=== PATIENT | female | born 1935 | race Caucasian/White ===

== ENCOUNTER 2017-01-02 18:40 | Emergency (ER) | payer OTHER ==
[2017-01-02 18:58] VITALS: BMI 31.8
[2017-01-02 21:15] LABS: BASOPHIL 0.6 % (0-2.0); EOSINOPHIL 0.3 % (0-4.5); MCH 30.3 pg (25.7-33.7); MEAN CELL VOLUME 91.7 fl (80-96); MEAN PLT VOLUME 9.7 fl (7.5-11.1); NEUTROPHILS 76.5 % (42.8-82.8); PLATELET COUNT 258 K/MM3 (134-434); RDW 13.3 % (11.6-15.6)
[2017-01-02 21:30] LABS: INR 1.12 (0.82-1.09); PROTHROMBIN TIME (PATIENT) 12.6 SEC (9.98-11.88)
[2017-01-02 21:41] LABS: ALBUMIN 3.3 g/dl (3.4-5.0); ANION GAP 12 (8-16); BILIRUBIN,TOTAL 0.4 mg/dL (0.2-1.0); CALCIUM 8.4 mg/dL (8.5-10.1); CO2 23 mmol/L (21-32); GLUCOSE,RANDOM 174 mg/dL (74-106); SGOT/AST 5 U/L (15-37); SGPT/ALT 14 U/L (12-78)
[2017-01-02 21:42] LABS: ALK PHOS 43 U/L (45-117); CPK 29 IU/L (26-192); TROPONIN I < 0.02 ng/ml (0.00-0.05)
[2017-01-02] MEDS ORDERED: MAGNESIUM SULF 50% (8.12 MEQ/2 ML-1 GM VIAL) IVPB ONE (21:43)
[2017-01-02] MEDS ORDERED: SODIUM CHLORIDE 0.9% 1000 ML INFUS.BAG IV ONE (21:44)
[2017-01-02] MEDS ORDERED: MAGNESIUM SULF 50% (8.12 MEQ/2 ML-1 GM VIAL) ONE (21:50)
--- NOTE | 2017-01-02 21:52 | PDOC ---
History of Present Illness - General Chief Complaint: Blood Pressure Problem Stated Complaint: BLOOD PRESSURE PROBLEM Time Seen by Provider: 01/02/17 19:22 - History of Present Illness Initial Comments: 01/02/17 21:47 CHIEF COMPLAINT: low blood pressure HISTORY OF PRESENT ILLNESS: 81 yo F with hx of HTN, HLD, and NIDDM presents to ED with low blood pressure. Patient states she took her blood pressure 2-3 times tonight and the blood pressure was in the 90s/50s, and she felt very dizzy , lightheaded, and weak. Patient states she was recently prescribed Nifedipine in addition to her other blood pressure medications. She denies any chest pain, shortness of breath, or diaphoresis, but repeats feeling palpitations when she was at home. PAST MEDICAL HISTORY: Denies past medical history FAMILY HISTORY: Denies SOCIAL HISTORY: Denies tobacco, alcohol, illicit drug use. SURGICAL HISTORY: Denies ALLERGIES: aspirin REVIEW OF SYSTEMS General/Constitutional: Denies fever or chills. Denies weakness, weight change. HEENT: Denies change in vision. Denies ear pain or discharge. Denies sore throat. Cardiovascular: Denies chest pain or shortness of breath. Respiratory: Denies cough, wheezing, or hemoptysis. Gastrointestinal: Denies nausea, vomiting, diarrhea or constipation. Denies rectal bleeding. Genitourinary: Denies dysuria, frequency, or change in urination. Musculoskeletal: Denies joint or muscle swelling or pain. Denies neck or back pain. Skin and breasts: Denies rash or easy bruising. Neurologic: Denies headache, vertigo, loss of consciousness, or loss of sensation. PHYSICAL EXAM General Appearance: Well-appearing, appropriately dressed. No apparent distress. HEENT: EOMI, PERRLA. No conjunctival pallor. No photophobia, scleral icterus. Neck: Supple. Trachea midline. No tenderness, rigidity, carotid bruit, stridor , lymphadenopathy, or thyromegaly. Respiratory/Chest: Lungs CTAB. Cardiovascular: RRR. S1, S2. Vascular Pulses: Dorsalis-Pedis (R): 1+, Dorsalis-Pedis (L): 1+ Gastrointestinal/Abdominal: Normal bowel sounds. Abdomen soft, non-distended. No tenderness or rebound tenderness. No organomegaly, pulsatile mass, guarding , hernia, hepatomegaly, splenomegaly. Musculoskeletal/Extremities: Normal inspection. FROM of all extremities, normal capillary refill. Pelvis Stable. No CVA tenderness. No tenderness to extremities, pedal edema, swelling, erythema or deformity. Integumentary: Appropriate color, dry, warm. 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 Fully oriented, alert. Appropriate mood/affect. Motor strength 5/5. No appreciable EOM palsy, facial droop or sensory deficit. A&Ox3, follow commands, respond appropriately CN2-12: conjugate gaze, pupil round, equal and reactive to light. Visual field full to confrontation. EOMI without nystagmus, pursuit is smooth without saccade. Facial sensation and muscle activation intact bilaterally. Hearing intact bilaterally. Palate elevate symmetrically. Shoulder shrug and neck turn full strength. Tongue protrude midline. Motor: UE and LE strength 5/5 throughout bilaterally. Muscle tone and bulk normal. Cerebellar: Rapid-alternating movement with regular rhythm without bradykinesia. Vastrs-ye-zmbw and wpqm-sw-roow intact bilaterally without dysmetria or overshoot. Gait narrow based. No shuffling. Full hip flexion and knee flexion. Negative Romberg No involuntary movement noted. No pronator drift. No clonus. Past History - Past Medical History Allergies/Adverse Reactions: Allergies Allergy/AdvReac Type Severity Reaction Status Date / Time aspirin Allergy Verified 01/02/17 18:55 Diabetes: Yes HTN: Yes Hypercholesterolemia: Yes Psychiatric Problems: Yes (anxiety) - Surgical History Cholecystectomy: Yes - Suicide/Smoking/Psychosocial Hx Smoking History: Never smoked Have you smoked in the past 12 months: No Information on smoking cessation initiated: No Hx Alcohol Use: No Drug/Substance Use Hx: No Substance Use Type: None *Physical Exam - Vital Signs Last Vital Signs Temp Pulse Resp BP Pulse Ox 98.2 F 79 20 121/53 99 01/02/17 22:26 01/02/17 22:26 01/02/17 22:26 01/02/17 22:26 01/02/17 22:26 ED Treatment Course - LABORATORY CBC & Chemistry Diagram: 01/02/17 21:05 01/02/17 21:05 - ADDITIONAL ORDERS Additional order review: Laboratory Results 01/02/17 01/02/17 01/02/17 21:05 21:05 21:05 PT with INR 12.60 H INR 1.12 Sodium 136 Potassium 4.2 Chloride 101 Carbon Dioxide 23 Anion Gap 12 BUN 23 H Creatinine 1.0 Creat Clearance w eGFR 53.48 Random Glucose 174 H Calcium 8.4 L Magnesium 1.4 L Total Bilirubin 0.4 AST 5 L ALT 14 Alkaline Phosphatase 43 L Creatine Kinase Troponin I Total Protein 7.0 Albumin 3.3 L 01/02/17 21:05 PT with INR INR Sodium Potassium Chloride Carbon Dioxide Anion Gap BUN Creatinine Creat Clearance w eGFR Random Glucose Calcium Magnesium Total Bilirubin AST ALT Alkaline Phosphatase Creatine Kinase 29 Troponin I < 0.02 Total Protein Albumin 01/02/17 21:05 RBC 3.65 MCV 91.7 MCHC 33.0 RDW 13.3 MPV 9.7 Neutrophils % 76.5 Lymphocytes % 14.0 Monocytes % 8.6 Eosinophils % 0.3 Basophils % 0.6 - Medications Given in the ED: ED Medications Discontinued Medications Generic Name Dose Route Start Last Admin Trade Name Freq PRN Reason Stop Dose Admin Magnesium Sulfate 2 gm 01/02/17 21:43 01/02/17 21:45 Magnesium Sulfate IVPB 01/02/17 21:44 2 gm ONCE ONE Administration Sodium Chloride 1,000 ml 01/02/17 21:44 01/02/17 21:45 Normal Saline - IV 01/02/17 21:45 1,000 ml ONCE ONE Administration Medical Decision Making - Medical Decision Making 01/02/17 21:52 81 yo F with hx of HTN, HLD, and NIDDM presents to ED with low blood pressure. Pt BP 136/51 on arrival to ED, tachy to 96. -EKG -CBC, CMP, card profile, PT/INR, Mg 01/02/17 23:58 Laboratory Tests 01/02/17 01/02/17 01/02/17 21:05 21:05 21:05 WBC 12.0 H PT with INR 12.60 H BUN 23 H Random Glucose 174 H Magnesium 01/02/17 21:05 WBC PT with INR BUN Random Glucose Magnesium 1.4 L -1 L IVF -2 mg Mg sulfate Patient reports she is feeling much better at this time and no longer feels lightheaded or weak. Family is at bedside and state that she appears much better as well. Patient and family report that they are ready to go home. Advised patient that she must follow up with her PCP and director outpatient services tomorrow for management of blood pressure medications. Patient and family verbalize understanding and agree to plan. *DC/Admit/Observation/Transfer Diagnosis at time of Disposition: Low blood pressure reading - Discharge Dispostion Disposition: HOME Condition at time of disposition: Stable Admit: No - Referrals - Patient Instructions Printed Discharge Instructions: How to Monitor Your Blood Pressure at Home Additional Instructions: As discussed, please follow up with your primary care doctor and director outpatient services TOMORROW to see if you should continued taking the Nifedipine at the same dose. Make sure you drink plenty of fluids and stay hydrated. If you develop ANY shortness of breath, chest pain, dizziness, lightheadedness, weakness, palpitations, blurry vision, or any new or worsening symptoms, please return to the ER.
[2017-01-02 22:27] VITALS: TEMP 98.2
[2017-01-02 23:58] VITALS: BP 132/74; PULSE 76
--- NOTE | 2017-01-04 07:11 | EKG ---
Test Reason : Blood Pressure : / mmHG Vent. Rate : 080 BPM Atrial Rate : 080 BPM P-R Int : 178 ms QRS Dur : 090 ms QT Int : 404 ms P-R-T Axes : -06 -07 042 degrees QTc Int : 465 ms NORMAL SINUS RHYTHM NORMAL ECG NO PREVIOUS ECGS AVAILABLE Confirmed by SHAYNA MURILLO MD ([id number]) on 01/04/2017 7:11:28 AM Referred By: Confirmed By:SHAYNA MURILLO MD
== END 2017-01-02 23:59 | disposition home or self-care (01) ==
LOC: JER 18:40
PROC: 3E033GC Introduction of Other Therapeutic Substance into Peripheral Vein, Percutaneous Approach (ICD-10-PCS; principal; 2017-01-02)
DX: I95.9 Hypotension, unspecified (principal); E78.00 Pure hypercholesterolemia, unspecified; F41.9 Anxiety disorder, unspecified
CPT/HCPCS: 36415; 80053; 82550; 83735; 84484; 85025; 85610; 93005; 93010; 96374; 99282-25